=== PATIENT | female | born 1980 | race Caucasian/White ===

== ENCOUNTER 2024-03-18 14:27 | Inpatient (IN) ==
[2024-03-18] MEDS: ONDANSETRON 4 MG/2 ML VIAL IV ONE (15:01)
[2024-03-18] MEDS: fentaNYL 100 MCG/2 ML VIAL IV ONE ×2 (15:02→16:30)
[2024-03-18 15:14] LABS: Basophils # (Auto) 0.06 K/mcL (0.00-0.30); Basophils % (Auto) 0.5 % (0.0-2.0); Eosinophils # (Auto) 0.25 K/mcL (0.00-0.70); Eosinophils % (Auto) 1.9 % (0.0-7.0); Hematocrit 39.3 % (34.1-44.9); Hemoglobin 12.8 g/dL (11.2-15.7); Lymphocytes # (Auto) 2.58 K/mcL (1.50-4.80); Lymphocytes % (Auto) 19.8 % (15.5-49.0); Mean Cell Volume 86.8 fL (80.0-100.0); Mean Corpuscular HGB Conc 32.6 g/dL (31.0-36.0); Mean Platelet Volume 9.6 fL (8.8-12.5); Monocytes % (Auto) 5.4 % (1.0-12.0); Neutrophils % (Auto) 72.2 % (38.0-78.0); Platelet Count 324 K/mcL (140-440); RBC 4.53 M/mcL (3.59-5.38); Red Cell Distribution Width 13.5 % (11.5-14.5)
[2024-03-18 15:29] LABS: Appearance,Urine Clear (Clear); Bilirubin,Urine Negative (Negative); Color,Urine Yellow; Culture Indicated,Urine No; Glucose,Urine (UA) Negative (Negative); Ketones,Urine Negative (Negative); Leukocyte Esterase,Urine Negative /uL (Negative); Nitrate,Urine Negative (Negative); PH,Urine 6.5 (5.0-9.0); Protein,Urine Negative (Negative); Urine Blood Negative ery/mcL (Negative); Urobilinogen,Urine Normal
[2024-03-18 15:30] LABS: HCG,Serum Negative
[2024-03-18 15:56] LABS: ALT/SGPT 18 U/L (<40); AST/SGOT 11 U/L (<32); Albumin 3.9 gm/dL (3.2-5.2); Albumin/Globulin Ratio 1.1 (1.0-2.3); Alkaline Phosphatase 66 U/L (39-117); Bilirubin,Total 0.3 mg/dL (0.1-1.0); Blood Urea Nitrogen 10 mg/dL (6-20); Calcium 9.1 mg/dL (8.6-10.4); Carbon Dioxide 21 mmol/L (22-30); Chloride 104 mmol/L (96-108); Globulin 3.5 gm/dL (2.2-3.7); Glomerular Filtration Rate 110; Glucose 96 mg/dL (70-105)
[2024-03-18] MEDS: PIPERACILLIN SODIUM/TAZOBACTAM 3.375 GM in DEXTROSE 5% IN WATER 50 ML IV ONE (17:05)
[2024-03-18] MEDS: 0.9 % SODIUM CHLORIDE 1,000 ML IV ONE (17:09)
[2024-03-18] MEDS: oxyCODONE IR 5 MG TABLET PO PRN (18:32)
[2024-03-18] MEDS: ONDANSETRON 4 MG/2 ML VIAL IV PRN (18:32)
[2024-03-18] MEDS: 0.9 % SODIUM CHLORIDE 1,000 ML IV SCH (18:53)
[2024-03-18] MEDS: ACETAMINOPHEN 1,000 MG/100 ML BAG IV SCH (18:53)
[2024-03-18] MEDS: PIPERACILLIN SODIUM/TAZOBACTAM 3.375 GM in DEXTROSE 5% IN WATER 100 ML IV SCH (20:52)
[2024-03-18] MEDS: LORazepam 2 MG/ML VIAL IV PRN (20:59)
[2024-03-19 06:14] LABS: Basophils # (Auto) 0.04 K/mcL (0.00-0.30); Basophils % (Auto) 0.5 % (0.0-2.0); Eosinophils # (Auto) 0.19 K/mcL (0.00-0.70); Eosinophils % (Auto) 2.5 % (0.0-7.0); Hematocrit 35.8 % (34.1-44.9); Hemoglobin 11.4 g/dL (11.2-15.7); Lymphocytes # (Auto) 2.11 K/mcL (1.50-4.80); Lymphocytes % (Auto) 27.5 % (15.5-49.0); Mean Cell Volume 89.5 fL (80.0-100.0); Mean Corpuscular HGB Conc 31.8 g/dL (31.0-36.0); Mean Platelet Volume 10.1 fL (8.8-12.5); Monocytes # (Auto) 0.53 K/mcL (0.10-0.90); Monocytes % (Auto) 6.9 % (1.0-12.0); Neutrophils % (Auto) 62.3 % (38.0-78.0); Platelet Count 269 K/mcL (140-440); Red Cell Distribution Width 13.8 % (11.5-14.5); WBC 7.7 K/mcL (4.5-11.0)
[2024-03-19 06:30] LABS: ALT/SGPT 9 U/L (<40); AST/SGOT 16 U/L (<32); Albumin 3.5 gm/dL (3.2-5.2); Albumin/Globulin Ratio 1.3 (1.0-2.3); Alkaline Phosphatase 55 U/L (39-117); Bilirubin,Direct < 0.2 mg/dL (0-0.3); Bilirubin,Total 0.4 mg/dL (0.1-1.0); Blood Urea Nitrogen 7 mg/dL (6-20); Calcium 8.5 mg/dL (8.6-10.4); Carbon Dioxide 21 mmol/L (22-30); Chloride 105 mmol/L (96-108); Globulin 2.7 gm/dL (2.2-3.7); Glomerular Filtration Rate 117; Glucose 95 mg/dL (70-105); Lactate Dehydrogenase 131 U/L (135-225); Phosphorous 3.5 mg/dL (2.5-4.5); Triglycerides 83 mg/dL (<150); Uric Acid 3.4 mg/dL (2.5-8.0)
[2024-03-19] MEDS: SCOPOLAMINE 1 PATCH PATCH TOPICAL ONE (17:23)
[2024-03-19] MEDS ORDERED: PROPOFOL 200 MG/20 ML VIAL IV ONE (17:56)
[2024-03-19] MEDS ORDERED: DEXAMETHASONE 10 MG/ML VIAL ONE (17:56)
[2024-03-19] MEDS ORDERED: LIDOCAINE 2% PF 5 ML VIAL ONE (17:56)
[2024-03-19] MEDS ORDERED: ONDANSETRON 4 MG/2 ML VIAL ONE (17:56)
[2024-03-19] MEDS ORDERED: GLYCOPYRROLATE 0.2 MG/ML VIAL IV ONE ×2 (17:56→18:49)
[2024-03-19] MEDS ORDERED: ROCURONIUM 10 MG/ML ML IV ONE ×2 (17:57→19:29)
[2024-03-19] MEDS ORDERED: SUCCINYLCHOLINE 200 MG/10 ML VIAL IV ONE (17:58)
[2024-03-19] MEDS ORDERED: KETAMINE 50 MG/ML Syringe IV ONE (17:59)
[2024-03-19] MEDS ORDERED: SUGAMMADEX SODIUM 200 MG/2 ML VIAL IV ONE (18:04)
[2024-03-19] MEDS ORDERED: MIDAZOLAM 2 MG/2 ML VIAL ONE (18:04)
[2024-03-19] MEDS ORDERED: HYDROmorphone 1 MG/ML SYRINGE ONE (18:35)
[2024-03-19] MEDS ORDERED: ePHEDrine 50 MG/5 ML SYRINGE (ANEST) IV ONE (18:46)
[2024-03-19] MEDS ORDERED: MAGNESIUM SULFATE 2 GM/50 ML BAG IV ONE (18:49)
[2024-03-19] MEDS ORDERED: IPRATROPIUM/ALBUTEROL 3 ML AMPUL.NEB NEB PRN (19:06)
[2024-03-19] MEDS ORDERED: ONDANSETRON 4 MG/2 ML VIAL IV PRN (19:23)
[2024-03-19] MEDS: fentaNYL 100 MCG/2 ML VIAL IV PRN ×2 (20:33→23:04)
[2024-03-19] MEDS: KETOROLAC 15 MG/ML VIAL IV PRN (21:03)
[2024-03-19] MEDS: HYDROmorphone 0.5 MG/0.5 ML SYRINGE IV ONE ×2 (21:12→21:42)
[2024-03-19] MEDS: LACTATED RINGERS 1,000 ML IV SCH (21:38)
[2024-03-19] MEDS: fentaNYL 100 MCG/2 ML VIAL ONE ×3 (21:38→21:39)
[2024-03-19] MEDS: HYDROmorphone 0.5 MG/0.5 ML SYRINGE ONE (21:42)
[2024-03-20 06:31] LABS: Basophils # (Auto) 0.02 K/mcL (0.00-0.30); Basophils % (Auto) 0.2 % (0.0-2.0); Eosinophils # (Auto) 0 K/mcL (0.00-0.70); Eosinophils % (Auto) 0 % (0.0-7.0); Hematocrit 36.8 % (34.1-44.9); Lymphocytes # (Auto) 0.84 K/mcL (1.50-4.80); Lymphocytes % (Auto) 8.5 % (15.5-49.0); Mean Cell Volume 86.8 fL (80.0-100.0); Mean Corpuscular HGB Conc 32.6 g/dL (31.0-36.0); Mean Platelet Volume 9.9 fL (8.8-12.5); Monocytes # (Auto) 0.21 K/mcL (0.10-0.90); Monocytes % (Auto) 2.1 % (1.0-12.0); Neutrophils % (Auto) 89.1 % (38.0-78.0); Platelet Count 306 K/mcL (140-440); RBC 4.24 M/mcL (3.59-5.38); Red Cell Distribution Width 13.3 % (11.5-14.5); WBC 9.9 K/mcL (4.5-11.0)
[2024-03-20 06:46] LABS: ALT/SGPT 32 U/L (<40); AST/SGOT 42 U/L (<32); Albumin 3.8 gm/dL (3.2-5.2); Albumin/Globulin Ratio 1.3 (1.0-2.3); Alkaline Phosphatase 65 U/L (39-117); Bilirubin,Direct < 0.2 mg/dL (0-0.3); Bilirubin,Total 0.3 mg/dL (0.1-1.0); Blood Urea Nitrogen 8 mg/dL (6-20); Calcium 8.6 mg/dL (8.6-10.4); Carbon Dioxide 22 mmol/L (22-30); Chloride 103 mmol/L (96-108); Glomerular Filtration Rate 117; Glucose 164 mg/dL (70-105); Lactate Dehydrogenase 152 U/L (135-225); Phosphorous 2.7 mg/dL (2.5-4.5); Triglycerides 53 mg/dL (<150); Uric Acid 3.3 mg/dL (2.5-8.0)
[2024-03-20] MEDS: LEVOTHYROXINE 25 MCG TABLET PO SCH (08:22)
[2024-03-20] MEDS: POLYETHYLENE GLYCOL 3350 17 GM PACKET PO SCH (16:55)
[2024-03-21 06:35] LABS: Basophils # (Auto) 0.05 K/mcL (0.00-0.30); Basophils % (Auto) 0.5 % (0.0-2.0); Eosinophils # (Auto) 0.12 K/mcL (0.00-0.70); Eosinophils % (Auto) 1.2 % (0.0-7.0); Hematocrit 31.8 % (34.1-44.9); Hemoglobin 9.9 g/dL (11.2-15.7); Lymphocytes # (Auto) 2.64 K/mcL (1.50-4.80); Lymphocytes % (Auto) 26.2 % (15.5-49.0); Mean Cell Volume 90.9 fL (80.0-100.0); Mean Corpuscular HGB Conc 31.1 g/dL (31.0-36.0); Mean Platelet Volume 10.1 fL (8.8-12.5); Monocytes # (Auto) 0.67 K/mcL (0.10-0.90); Monocytes % (Auto) 6.7 % (1.0-12.0); Neutrophils % (Auto) 65.2 % (38.0-78.0); Platelet Count 259 K/mcL (140-440); Red Cell Distribution Width 13.9 % (11.5-14.5); WBC 10.1 K/mcL (4.5-11.0)
== END 2024-03-21 17:40 | disposition home or self-care (01) | DRG 419 ==
LOC: ED 14:27 → MEDSUR 14:27
PROVIDERS: ADMIT Family Medicine Adult Medicine; ATTEND Family Medicine Adult Medicine